=== PATIENT | male | born 1980 | race Two or more races ===

== ENCOUNTER 2018-05-26 14:44 | Outpatient (CLI) | payer OTHER | END 2018-05-26 15:05 | disposition home or self-care (01) | LOC: MRI 14:44 | DX: M54.5 Low back pain (principal) | CPT/HCPCS: 72148 ==

== ENCOUNTER 2021-09-13 07:12 | Outpatient (CLI) | payer OTHER | END 2021-09-13 07:20 | disposition home or self-care (01) | LOC: MRI 07:12 | PROVIDERS: ATTEND Orthopaedic Surgery Orthopaedic Surgery of the Spine | DX: M54.50 Low back pain, unspecified (principal); M51.36 Other intervertebral disc degeneration, lumbar region; M51.37 Other intervertebral disc degeneration, lumbosacral region | CPT/HCPCS: 72148 ==

== ENCOUNTER 2021-12-13 07:41 | Outpatient (CLI) | payer OTHER | END 2021-12-13 07:49 | disposition home or self-care (01) | LOC: LAB 07:41 | PROVIDERS: ATTEND Radiology Diagnostic Radiology | DX: R10.30 Lower abdominal pain, unspecified (principal) ==

== ENCOUNTER 2021-12-14 07:41 | Outpatient (CLI) | payer OTHER | END 2021-12-14 07:51 | disposition home or self-care (01) | LOC: TOM 07:41 | DX: R19.00 Intra-abdominal and pelvic swelling, mass and lump, unspecified site (principal); M54.9 Dorsalgia, unspecified ==

== ENCOUNTER 2022-08-02 07:38 | Outpatient (CLI) | payer OTHER | END 2022-08-02 07:54 | disposition home or self-care (01) | LOC: RAD 07:38 | DX: M54.2 Cervicalgia (principal); M99.01 Segmental and somatic dysfunction of cervical region; M54.51 Vertebrogenic low back pain; M99.03 Segmental and somatic dysfunction of lumbar region ==

== ENCOUNTER 2023-05-06 07:45 | Outpatient (CLI) | payer OTHER | END 2023-05-06 07:49 | disposition home or self-care (01) | LOC: RAD 07:45 | DX: M54.50 Low back pain, unspecified (principal); M25.552 Pain in left hip ==

== ENCOUNTER 2023-05-07 07:06 | Outpatient (CLI) | payer OTHER | END 2023-05-07 07:12 | disposition home or self-care (01) | LOC: MRI 07:06 | DX: M54.50 Low back pain, unspecified (principal); M25.552 Pain in left hip | CPT/HCPCS: 72141; 72148 ==

== ENCOUNTER 2024-01-09 11:02 | Outpatient (CLI) | payer OTHER | END 2024-01-09 11:05 | disposition home or self-care (01) | LOC: SONOGRAMA 11:02 | DX: M77.8 Other enthesopathies, not elsewhere classified (principal) ==

== ENCOUNTER 2024-01-26 08:04 | Outpatient (CLI) | payer OTHER | END 2024-01-26 08:13 | disposition home or self-care (01) | LOC: MRI 08:04 | PROVIDERS: ATTEND Podiatrist Foot Surgery | DX: M77.8 Other enthesopathies, not elsewhere classified (principal) | CPT/HCPCS: 73718 ==

== ENCOUNTER 2024-08-17 07:51 | Outpatient (CLI) | payer OTHER | END 2024-08-17 07:56 | disposition home or self-care (01) | LOC: RAD 07:51 | PROVIDERS: ATTEND Chiropractor | DX: M54.2 Cervicalgia (principal); M54.51 Vertebrogenic low back pain; M54.6 Pain in thoracic spine ==

== ENCOUNTER 2025-01-27 07:24 | Outpatient (CLI) | payer OTHER | END 2025-01-27 07:26 | disposition home or self-care (01) | LOC: RAD 07:24 | DX: R05.9 Cough, unspecified (principal) ==